=== PATIENT | female | born 1985 | race Caucasian/White ===

== ENCOUNTER 2024-05-25 23:13 | Emergency (ER) | payer OTHER ==
[~2024-05-25] VITALS: Ht 157.5 cm; Wt 59.0 kg
[2024-05-25 23:19] VITALS: BP 120/76; TEMP 98.9; O2SAT 95
[2024-05-26] MEDS ORDERED: ALBU18HF2 INH (00:07)
== END 2024-05-26 00:28 | disposition home or self-care (01) ==
LOC: ER 23:23
DX: R05.9 Cough, unspecified (principal); Z91.048 Other nonmedicinal substance allergy status
CPT/HCPCS: 71045-TC